=== PATIENT | female | born 2000 | race Caucasian/White ===

== ENCOUNTER 2021-08-21 08:02 | Emergency (ER) | payer OTHER ==
[~2021-08-21] VITALS: Ht 157.5 cm; Wt 58.5 kg
[~2021-08-21 08:02] MED LIST: PROBIOTIC1 EAC2 PO
[2021-08-21] MEDS ORDERED: CEPHALEXIN500 M1 PO (10:15)
== END 2021-08-21 10:30 | disposition home or self-care (01) ==
LOC: ED 08:02
DX: N30.90 Cystitis, unspecified without hematuria (principal); Z88.8 Allergy status to other drugs, medicaments and biological substances; Z79.899 Other long term (current) drug therapy
CPT/HCPCS: 81001; 87088; 99283; A9270